=== PATIENT | male | born 1995 | race Hispanic/Latino ===

== ENCOUNTER 2017-11-01 18:42 | Emergency (ER) | payer BC, OTHER ==
[2017-11-01] MEDS ORDERED: TETANUS & DIPHTHERIA TOX,ADULT 0.5 ML VIAL ONE (19:58)
--- NOTE | 2017-11-01 20:48 | EDPHYS ---
Physician Documentation [facility] Name: Viktor Khoury Age: 22 yrs Sex: Male : 1995 Arrival Date: 11/01/2017 Time: 18:46 Bed 30 Private MD: None, None ED Physician Da Nguyen HPI: 11/01 20:00 This 22 yrs old Male presents to ER via Ambulatory with complaints of Finger pm1 Injury. 22:00 The patient or guardian reports a puncture wound, from a nail. The complaints affect pm1 the medial aspect of PIP of left middle finger. Context: The problem was sustained at home, patient was working on a table putting nails and a nail is sticking out of the bottom and he placed his hand against the bottom of the table. The nail poked entered and exited along the medial aspect of his PIP. Did not go through the joint. Patient is able to move his finger FROM without any pain. No current pain . Historical: - Allergies: 19:02 PENICILLINS; ph 19:02 Amoxicillin; ph - Home Meds: 19:02 None [Active]; ph - PMHx: 19:02 None; ph - PSHx: 19:02 None; ph - Immunization history:: Last tetanus immunization: > 10 years ago. - Social history:: Smoking status: Patient/guardian denies using tobacco. - Ebola Screening: : No symptoms or risks identified at this time. ROS: 22:00 Constitutional: Negative for fever, chills, and weight loss, Eyes: Negative for injury, pm1 pain, redness, and discharge, ENT: Negative for injury, pain, and discharge, Neck: Negative for injury, pain, and swelling, Cardiovascular: Negative for chest pain, palpitations, and edema, Respiratory: Negative for shortness of breath, cough, wheezing, and pleuritic chest pain, Abdomen/GI: Negative for abdominal pain, nausea, vomiting, diarrhea, and constipation, Back: Negative for injury and pain, MS/Extremity: Negative for injury and deformity. 22:00 Skin: Positive for puncture, of the left hand. Exam: 22:00 Constitutional: This is a well developed, well nourished patient who is awake, alert, pm1 and in no acute distress. Head/Face: Normocephalic, atraumatic. Eyes: Pupils equal round and reactive to light, extra-ocular motions intact. Lids and lashes normal. Conjunctiva and sclera are non-icteric and not injected. Cornea within normal limits. Periorbital areas with no swelling, redness, or edema. ENT: Nares patent. No nasal discharge, no septal abnormalities noted. Tympanic membranes are normal and external auditory canals are clear. Oropharynx with no redness, swelling, or masses, exudates, or evidence of obstruction, uvula midline. Mucous membranes moist. Neck: Trachea midline, no thyromegaly or masses palpated, and no cervical lymphadenopathy. Supple, full range of motion without nuchal rigidity, or vertebral point tenderness. No Meningismus. Chest/axilla: Normal chest wall appearance and motion. Nontender with no deformity. No lesions are appreciated. Cardiovascular: Regular rate and rhythm with a normal S1 and S2. No gallops, murmurs, or rubs. Normal PMI, no JVD. No pulse deficits. Respiratory: Lungs have equal breath sounds bilaterally, clear to auscultation and percussion. No rales, rhonchi or wheezes noted. No increased work of breathing, no retractions or nasal flaring. Abdomen/GI: Soft, non-tender, with normal bowel sounds. No distension or tympany. No guarding or rebound. No evidence of tenderness throughout. Back: No spinal tenderness. No costovertebral tenderness. Full range of motion. 22:00 MS/ Extremity: Pulses equal, no cyanosis. Neurovascular intact. Full, normal range of motion. 22:00 Skin: Appearance: normal except for affected area, injury, puncture(s), of the dorsal aspect of PIP of left middle finger. 22:00 Neuro: Orientation: is normal, Motor: is normal, moves all fours, Sensation: is normal, no obvious gross deficits. Vital Signs: 19:00 BP 147 / 72; Pulse 105; Resp 18; Temp 97.9; Pulse Ox 99% on R/A; Weight 113.4 kg; ph Height 5 ft. 8 in. (172.72 cm); Pain 3/10; 19:28 BP 128 / 77; Pulse 92; Pulse Ox 99% on R/A; rv 20:01 BP 126 / 68; Pulse 95; Pulse Ox 99% on R/A; rv 20:44 BP 128 / 57; Pulse 94; Pulse Ox 97% on R/A; rv 19:00 Body Mass Index 38.01 (113.40 kg, 172.72 cm) ph MDM: 19:06 Patient medically screened. pm1 20:46 Data reviewed: vital signs. Data interpreted: Pulse oximetry: on room air is 97 %. pm1 Interpretation: normal. Counseling: I had a detailed discussion with the patient and/or guardian regarding: the historical points, exam findings, and any diagnostic results supporting the discharge/admit diagnosis, radiology results, the need for outpatient follow up, to return to the emergency department if symptoms worsen or persist or if there are any questions or concerns that arise at home. 11/01 19:34 Order name: Hand Left 3 View XRAY pm1 Administered Medications: 19:58 Drug: Tetanus-Diphtheria Toxoid Adult 0.5 ml {Social Staff Worker: [employer]. Exp: rv 12/01/2019. Lot #: [id number]. } Route: IM; Site: right deltoid; 20:56 Follow up: Response: No adverse reaction rv Disposition: 11/02 06:49 Co-signature as Attending Physician, Da Nguyen MD I agree with the assessment and [facility] plan of care. Disposition: 11/01/17 20:48 Discharged to Home. Impression: Puncture wound without foreign body of left middle finger without damage to nail. - Condition is Stable. - Discharge Instructions: Puncture Wound. - Prescriptions for Bactrim DS 800- 160 mg Oral Tablet - take 1 tablet by ORAL route every 12 hours for 10 days; 20 tablet. - Medication Reconciliation Form, Thank You Letter, Antibiotic Education, Prescription Opioid Use form. - Follow up: Emergency Department; When: As needed; Reason: Worsening of condition. Follow up: Private Physician; When: 2 - 3 days; Reason: Recheck today's complaints, Continuance of care, Re-evaluation by your physician. - Problem is new. - Symptoms have improved. Signatures: Dispatcher [employer] Da Pierson MD MD cha Hall, Patricia, RN RN ph Desmond Marie, RIOS [employer] pm1 Robin Recio RN RN rv Corrections: (The following items were deleted from the chart) 11/01 20:57 20:48 11/01/2017 20:48 Discharged to Home. Impression: Puncture wound without foreign rv body of left middle finger without damage to nail. Condition is Stable. Forms are Medication Reconciliation Form, Thank You Letter, Antibiotic Education, Prescription Opioid Use. Follow up: Emergency Department; When: As needed; Reason: Worsening of condition. Follow up: Private Physician; When: 2 - 3 days; Reason: Recheck today's complaints, Continuance of care, Re-evaluation by your physician. Problem is new. Symptoms have improved. pm1
--- NOTE | 2017-11-01 20:48 | ER ---
Nurse's Notes [facility] Name: Viktor Khoury Age: 22 yrs Sex: Male : 1995 Arrival Date: 11/01/2017 Time: 18:46 Bed 30 Private MD: None, None Diagnosis: Puncture wound without foreign body of left middle finger without damage to nail Presentation: 11/01 18:58 Presenting complaint: Patient states: " I was trying to fix a table and I had a nail go ph through my finger." Small puncture noted to L middle finger, no bleeding noted. Transition of care: patient was not received from another setting of care. Onset of symptoms was November 01, 2017. Risk Assessment: Do you want to hurt yourself or someone else? Patient reports no desire to harm self or others. Initial Sepsis Screen: Does the patient meet any 2 criteria? No. Patient's initial sepsis screen is negative. Does the patient have a suspected source of infection? No. Patient's initial sepsis screen is negative. Care prior to arrival: None. 18:58 Method Of Arrival: Ambulatory 18:58 Acuity: OLIVIA 4 ph Triage Assessment: 19:19 Injury Description: Puncture sustained to MIDDLE FINGER, LEFT HAND. rv Historical: - Allergies: 19:02 PENICILLINS; ph 19:02 Amoxicillin; ph - Home Meds: 19:02 None [Active]; ph - PMHx: 19:02 None; ph - PSHx: 19:02 None; ph - Immunization history:: Last tetanus immunization: > 10 years ago. - Social history:: Smoking status: Patient/guardian denies using tobacco. - Ebola Screening: : No symptoms or risks identified at this time. Screenin:18 Abuse screen: Denies threats or abuse. Denies injuries from another. Nutritional rv screening: No deficits noted. Tuberculosis screening: No symptoms or risk factors identified. Fall Risk None identified. Assessment: 19:15 General: Appears in no apparent distress. comfortable, Behavior is calm, cooperative. rv Pain: Complains of pain in left hand. Neuro: Level of Consciousness is awake, alert, obeys commands, Oriented to person, place, time, situation. Cardiovascular: Capillary refill < 3 seconds. Respiratory: Airway is patent. GI: No signs and/or symptoms were reported involving the gastrointestinal system. : No signs and/or symptoms were reported regarding the genitourinary system. EENT: No signs and/or symptoms were reported regarding the EENT system. Derm: Wound noted MIDDLE FINGER, LEFT HAND Wound is PUNCTURED WOUND FROM NAIL. Musculoskeletal: PUNCTURED WOUND WITH NAIL. 20:44 Reassessment: Patient appears in no apparent distress at this time. Patient and/or rv family updated on plan of care and expected duration. Pain level reassessed. Patient is alert, oriented x 3, equal unlabored respirations, skin warm/dry/pink. Vital Signs: 19:00 BP 147 / 72; Pulse 105; Resp 18; Temp 97.9; Pulse Ox 99% on R/A; Weight 113.4 kg; ph Height 5 ft. 8 in. (172.72 cm); Pain 3/10; 19:28 BP 128 / 77; Pulse 92; Pulse Ox 99% on R/A; rv 20:01 BP 126 / 68; Pulse 95; Pulse Ox 99% on R/A; rv 20:44 BP 128 / 57; Pulse 94; Pulse Ox 97% on R/A; rv 19:00 Body Mass Index 38.01 (113.40 kg, 172.72 cm) ph ED Course: 18:46 Patient arrived in ED. rg4 18:47 None, None is Private Physician. mr 19:00 Triage completed. ph 19:02 Arm band placed on. ph 19:06 Desmond Marie, RIOS is PHCP. pm1 19:06 Da Nguyen MD is Attending Physician. pm1 19:19 Patient has correct armband on for positive identification. Bed in low position. Call rv light in reach. Side rails up X 1. Adult w/ patient. Pulse ox on. NIBP on. 20:00 Awaiting for x-ray. rv 20:04 Hand Left 3 View XRAY In Process Unspecified. EDMS 20:56 No provider procedures requiring assistance completed. Patient did not have IV access rv during this emergency room visit. 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 Exp: rv 12/01/2019. Lot #: [id number]. } Route: IM; Site: right deltoid; 20:56 Follow up: Response: No adverse reaction rv Outcome: 20:48 Discharge ordered by . pm1 20:56 Discharged to home ambulatory. rv 20:56 Condition: good 20:56 Discharge instructions given to patient, Instructed on discharge instructions, follow up and referral plans. medication usage, wound care, Prescriptions given X 1. 20:57 Patient left the ED. rv Signatures: Dispatcher [employer] EDJessica Sun Patricia, RN RN Desmond Costello, [employer] pm1 Cristóbal, Renetta rg4 Robin Recio RN RN rv
--- NOTE | 2017-11-01 21:38 | RAD REPORT ---
EXAM DESCRIPTION: RAD - Hand Left 3 View - 11/01/2017 8:06 pm CLINICAL HISTORY: Blunt force trauma, puncture wound third digit COMPARISON: None. FINDINGS: No fracture, dislocation or periosteal reaction noted. No foreign body or other soft tissu e abnormality. IMPRESSION: No foreign body. No acute bone finding.
== END 2017-11-01 20:57 | disposition home or self-care (01) ==
LOC: ER 18:42
DX: S61.333A Puncture wound without foreign body of left middle finger with damage to nail, initial encounter (principal); X58.XXXA Exposure to other specified factors, initial encounter; Y93.89 Activity, other specified; Y92.89 Other specified places as the place of occurrence of the external cause; Y99.8 Other external cause status; Z23 Encounter for immunization; Z88.1 Allergy status to other antibiotic agents; Z88.0 Allergy status to penicillin
CPT/HCPCS: 90714; 99284